=== PATIENT | male | born 1990 | race Caucasian/White ===

== ENCOUNTER 2017-07-16 20:56 | Emergency (ER) | payer OTHER ==
[~2017-07-16] VITALS: Ht 177.8 cm; Wt 141.5 kg
[2017-07-16 21:15] LABS: URINE BILIRUBIN NEGATIVE (Negative); URINE BLOOD NEGATIVE (Negative); URINE CLARITY CLEAR; URINE COLOR YELLOW; URINE GLUCOSE-RANDOM* NEGATIVE (Negative); URINE KETONES NEGATIVE (Negative); URINE LEUKOCYTES-REFLEX NEGATIVE (Negative); URINE NITRITE-REFLEX NEGATIVE (Negative); URINE PROTEIN (DIPSTICK) NEGATIVE (Negative); URINE UROBILINOGEN 0.2 E.U./dl (0.2-1.0)
[2017-07-16 21:29] LABS: ABSOLUTE NEUTROPHILS 6.3 thou/uL (1.4-8.2); BASOPHILS 0.7 % (0.0-2.0); EOSINOPHILS 1.6 % (0.0-3.0); HEMATOCRIT 44.9 % (42.0-52.0); HEMOGLOBIN 15.2 gm/dL (14.0-18.0); LYMPHOCYTES 41.1 % (24.0-44.0); MCH 28.3 pg (26.0-34.0); MCHC 33.9 g/dL (28.0-37.0); MCV 83.7 fL (80.0-100.0); MONOCYTES 6.8 % (1.0-8.0); PLATELET COUNT 277 thou/uL (150-400); POLYS 49.8 % (36.0-66.0); RBC 5.36 mil/uL (4.50-6.00); RDW 13.1 % (10.5-14.5); WBC 12.6 thou/uL (4.0-11.0)
[2017-07-16 21:38] LABS: CALCIUM 9.3 mg/dL (8.5-10.1); CREATININE 0.8 mg/dL (0.7-1.3); POTASSIUM 4.2 mmol/L (3.5-5.1)
[2017-07-16 21:43] LABS: ALBUMIN 3.9 g/dL (3.4-5.0); TOTAL BILIRUBIN 0.4 mg/dL (<0.1-1.0); TOTAL PROTEIN 7.2 g/dL (6.4-8.2)
[2017-07-16] MEDS ORDERED: NORCO 5-325 TA1 EACH PO (23:18)
== END 2017-07-16 23:40 | disposition home or self-care (01) ==
LOC: ER 20:56
PROVIDERS: Emergency Medicine
DX: R10.30 Lower abdominal pain, unspecified (principal); J45.909 Unspecified asthma, uncomplicated; F17.210 Nicotine dependence, cigarettes, uncomplicated